=== PATIENT | female | born 1955 | race Caucasian/White ===

== ENCOUNTER → 2019-05-01 | Outpatient (CLI) | payer OTHER ==
[~2019-05-01] MED LIST: ADVIL LIQUI-GE200 MG PO; ADVIL100 M2 PO; CALCIUM 500 +1 EAC5 PO; CALCIUM OYSTER500 MG PO; COZAAR 25 MG TA25 M2 PO; MOBIC7.5 MG PO; MULTIVITAMINS1 EAC7 PO; NORCO 5-325 TA1 EACH PO; NORTRIPTYLINE H10 M1 PO; PRAVACHOL20 MG PO; RECLAST 55 MG/100 M IV; TRAMADOL HCL E100 MG PO; VITAMIN D1000 UNI1 PO; VITAMIN D10000 UNIT; VITAMINC500 PO; XANAX 0.5 MG0.5 M1 PO; ZOFRAN ODT4 MG PO
== END ==
LOC: CAT 13:03
DX: Z13.6 Encounter for screening for cardiovascular disorders (principal); E78.00 Pure hypercholesterolemia, unspecified; I25.10 Atherosclerotic heart disease of native coronary artery without angina pectoris

== ENCOUNTER → 2020-01-23 | Outpatient (CLI) | payer OTHER | LOC: SJCVC 10:19 | PROVIDERS: ATTEND Internal Medicine Cardiovascular Disease | DX: I10 Essential (primary) hypertension (principal); E78.00 Pure hypercholesterolemia, unspecified; M81.0 Age-related osteoporosis without current pathological fracture; Z82.49 Family history of ischemic heart disease and other diseases of the circulatory system; Z87.891 Personal history of nicotine dependence; Z79.899 Other long term (current) drug therapy ==